=== PATIENT | male | born 1975 | race Caucasian/White ===

== ENCOUNTER 2018-04-02 14:24 | Outpatient (CLI) | payer BC ==
--- NOTE | 2018-04-02 16:30 | MRI ---
MRI LUMBAR SPINE NONCONTRAST: 04/02/18 HISTORY: Chronic low back pain with left leg radiculopathy. FINDINGS: The conus medullaris has a normal appearance. Vertebral body heights and alignment are maintained. Th ere is desiccation of the lowest two intervertebral discs. Pars interarticularis at the L5 level cannot be continually visualized, so that pars defects are poss ible. Increased T2 signal and decreased T1 signal is associated with the bone marrow of the right L4 and L5 pedicles and each facet at the L4 and L5 levels. T12-L1, L1-2, L2-3: Mild osteophytosis. Central canal and neural foramina are patent. L3-4: Minimal disc bulge. Prominent osseous hypertrophy of the facets. Thecal sac is patent. Mild juan nosis of each neural foramen. L4-5: Right posterolateral disc protrusion compresses the right ventral aspect of the thecal sac and origin of the right L5 nerve root. Disc bulge and osteophytosis also result in severe right and moder ate left foraminal stenoses. L5-S1: Posterior annular fissure within the disc. Minimal disc bulge. Thecal sac is patent. Degenerat [place] changes with moderate stenosis of the left neural foramen. IMPRESSION: Right posterolateral disc protrusion at the L4-5 level, compressing the origin of the right L5 nerve root and extending into the right neural foramen, affecting the right L4 nerve root. Other degenerative changes of the lower lumbar spine, including stenoses of the left neural foramina are the lowest two levels. Reactive bone marrow edema involving the right pedicles and bilateral facets at the lowest two levels . POS: BERNIE
== END 2018-04-02 14:25 | disposition home or self-care (01) ==
LOC: SCSMRI 14:24
PROVIDERS: ATTEND Neurological Surgery
DX: M47.26 Other spondylosis with radiculopathy, lumbar region (principal); M54.5 Low back pain; M51.16 Intervertebral disc disorders with radiculopathy, lumbar region; M48.061 Spinal stenosis, lumbar region without neurogenic claudication; R60.0 Localized edema
CPT/HCPCS: 72148

== ENCOUNTER 2018-04-29 07:50 | Day surgery (SDC) | payer BC ==
[2018-04-24 08:40] VITALS: BMI 26.6
--- NOTE | 2018-04-28 15:05 | HP ---
HISTORY OF PRESENT ILLNESS: Mr. Bettencourt is a 43-year-old man here today for roughly a year and a half for the right-sided lower back pain and right lower extremity pain that appears to fit well with an L5 radiculopathy. This waxes and wanes with course. He has attempted treatment with therapy, chiropractics, and medications with limited relief only. He has a new MRI from [place] that reveals L4-5 lateral recess stenosis from a disk osteophyte complex that appears to impinge upon the descending L5 nerve root on the right that would fit well. He hopes to move forward with surgery if possible. PAST MEDICAL HISTORY: Significant for migraine headaches and seasonal allergies. CURRENT MEDICATIONS: None. ALLERGIES: NO KNOWN DRUG ALLERGIES. SURGICAL HISTORY: Unspecified wrist surgery. PHYSICAL EXAMINATION: GENERAL: The patient is alert and oriented x3. NEUROLOGIC: Gait is mildly antalgic. Lower extremity motor exam is normal. Reflexes are equal and present bilaterally at the patella. ASSESSMENT: Lumbar radiculopathy. PLAN: Dr. Peterson met with the patient, reviewed imaging, advocated for right L4-5 diskectomy and decompression. He explained to the patient the risks, benefits, and alternatives to the procedure. The patient expressed understanding and elected to move forward with surgery as discussed. I do believe the patient is mentally competent and capable of making medical decisions for himself. We will move forward with surgery as planned. Job ID: [id number]
[2018-04-29] MEDS ORDERED: Bupivacaine HCl 0.5%/Epinephrine 1:200,000/PF 30 ml Vial ONE (08:19)
[2018-04-29] MEDS ORDERED: Fentanyl 100 MCG/2 ML VIAL ONE ×3 (08:19→10:25)
[2018-04-29] MEDS ORDERED: Lidocaine 1% PF 5 ML VIAL ONE (09:09)
[2018-04-29] MEDS ORDERED: PROPOFOL 200 MG/20 ML VIAL ONE (09:09)
[2018-04-29] MEDS ORDERED: Glycopyrrolate 0.2 MG/ML 5 ML SYRINGE ONE (09:09)
[2018-04-29] MEDS ORDERED: Dexamethasone 20 MG/5 ML VIAL ONE (09:09)
[2018-04-29] MEDS ORDERED: PHENYLEPHRINE-NS 100 MCG/ML 10 ML SYRINGE ONE (09:09)
[2018-04-29] MEDS ORDERED: ePHEDrine 50 MG/ML VIAL ONE (09:09)
[2018-04-29] MEDS ORDERED: Ketorolac Tromethamine 30 MG/ML VIAL ONE (09:09)
[2018-04-29] MEDS ORDERED: Rocuronium Bromide 10 MG/ML (10ML VIAL) ONE (09:09)
[2018-04-29] MEDS ORDERED: Ondansetron PF 4 MG/2 ML Vial ONE (09:09)
--- NOTE | 2018-04-29 10:26 | OP ---
DATE OF PROCEDURE: 04/29/2018 [facility] [employer] DEVELOPER: Cuco Kenney PA-C. INDICATION: Pain. DIAGNOSIS: Lumbar radiculopathy. PROCEDURES PERFORMED: Right L4-L5 hemilaminectomy, medial facetectomy, diskectomy, decompression. ANESTHESIA: General. DESCRIPTION OF PROCEDURE: The patient was brought into the operating room and placed under general anesthesia. He was flipped from the supine to prone position on the operating room table. A linear incision was planned over the L4-L5 segment. After prepping and draping and after an appropriate preoperative pause, the incision was created. The soft tissues were swept right of midline. A self-retaining retractor was placed for optimal exposure. After confirming the appropriate level with C-arm fluoroscopy, high-speed cutting drill bit as well as 2, 3, and 4 mm Kerrisons were used to perform a laminectomy along the inferior aspect of L4 and superior aspect of L5. The descending L5 nerve root was identified. It was mobilized medially with a nerve root retractor. An 11 blade knife was then used to perform an annulotomy in the L4 disk. The disk material was removed that was in the lateral recesses. In the end, the descending L5 nerve root was well decompressed. The wound was then irrigated. Hemostasis was maintained throughout. The wound was then closed in anatomic layers and a pressure dressing was applied. There were no known procedural complications. Job ID: [id number]
[2018-04-29] MEDS ORDERED: Tamsulosin HCl 0.4 MG CAP ONE (10:31)
[2018-04-29] MEDS ORDERED: HYDROcodone/Acetaminophen 5/325 mg Tablet ONE (11:22)
== END 2018-04-29 13:21 | disposition home or self-care (01) ==
LOC: SDC 07:50
PROVIDERS: ATTEND Neurological Surgery
PROC: 0SB20ZZ Excision of Lumbar Vertebral Disc, Open Approach (ICD-10-PCS; principal; 2018-04-29)
DX: M54.16 Radiculopathy, lumbar region (principal); G43.909 Migraine, unspecified, not intractable, without status migrainosus; Z79.899 Other long term (current) drug therapy
CPT/HCPCS: 76000; J0670; J1100; J1885; J2001; J2405; J2704; J3010; J3490